=== PATIENT | female | born 1945 | race Caucasian/White ===

== ENCOUNTER 2024-09-13 15:39 | Inpatient (IN) | payer OTHER ==
[~2024-09-13] VITALS: Ht 152.4 cm; Wt 70.0 kg
[2024-09-13 16:25] LABS: BASOPHILS % (AUTO) 0.4 % (0.0-2.0); EOSINOPHILS # (AUTO) 0.2 K/uL (0.0-0.7); EOSINOPHILS % (AUTO) 3.1 % (0.0-6.0); HEMATOCRIT 38 % (33-45); HEMOGLOBIN 12.5 g/dL (11.5-14.8); LYMPHOCYTES # (AUTO) 1.2 K/uL (0.8-4.8); MEAN CORPUSCULAR HEMOGLOBIN 28 PG (26.0-33.0); MEAN CORPUSCULAR HGB CONC 33 g/dl (31.0-36.0); MEAN CORPUSCULAR VOLUME 84 fL (82-100); MONOCYTES # (AUTO) 0.6 K/uL (0.1-1.30); MONOCYTES % (AUTO) 9.7 % (2.0-12.0); NEUTROPHILS # (AUTO) 3.9 K/uL (1.8-8.9); NEUTROPHILS % (AUTO) 66.8 % (43.0-81.0); PLATELET COUNT (AUTO) 186 K/uL (150-450); RED CELL DISTRIBUTION WIDTH 15.3 % (11.5-15.0); WHITE BLOOD COUNT (AUTO) 5.9 K/uL (4.3-11.0)
[2024-09-13 16:44] LABS: ALANINE AMINOTRANSFERASE 11 U/L (12-78); ALBUMIN 3.6 g/dL (3.4-5.0); ALKALINE PHOSPHATASE 136 U/L (46-116); ASPARTATE AMINOTRANSFERASE 22 U/L (15-37); BILIRUBIN,DIRECT 0.2 mg/dL (0.0-0.2); BILIRUBIN,TOTAL 0.5 mg/dL (0.2-1.0); CALCIUM, SERUM 9.6 mg/dL (8.5-10.1); CARBON DIOXIDE 27 mmol/L (21-32); CHLORIDE 105 mmol/L (98-107); CREATININE 1.1 mg/dL (0.6-1.3); GLUCOSE 135 mg/dL (74-106); SODIUM SERUM 138 mmol/L (136-145); TOTAL PROTEIN, SERUM 7.6 g/dL (6.4-8.2); UREA NITROGEN, BLOOD 14 mg/dL (7-18)
[2024-09-13 17:14] LABS: APPEARANCE,URINE CLEAR (CLEAR); BILIRUBIN,URINE NEGATIVE (NEGATIVE); BLOOD, URINE NEGATIVE Ery/uL (NEGATIVE); COLOR,URINE YELLOW (YELLOW); KETONES,URINE NEGATIVE (NEGATIVE); LEUKOCYTE ESTERASE ,URINE NEGATIVE (NEGATIVE); NITRITE, URINE NEGATIVE (NEGATIVE); PH,URINE 6.5 (5.0-8.0); PROTEIN,URINE NEGATIVE (NEGATIVE); UGLUCOSE NEGATIVE (NEGATIVE); UROBILINOGEN,URINE 0.2 EU/dL (0.2)
[2024-09-13] MEDS ORDERED: MORPHINE SULFATE INJ 4 MG/ML DISP.SYRIN ONE (17:19)
[2024-09-13] MEDS: MORPHINE SULFATE INJ 2 MG/ML DISP.SYRIN IV ONE (18:07)
[2024-09-13] MEDS ORDERED: IBUPROFEN 600 MG TABLET ONE (18:08)
[2024-09-13] MEDS: IBUPROFEN 600 MG TABLET PO ONE (18:11)
[2024-09-13] MEDS ORDERED: DEUT12TA PO (19:26)
[2024-09-13] MEDS ORDERED: CALC-261 PO (19:26)
[2024-09-13] MEDS ORDERED: MELO-107 PO (19:26)
[2024-09-13] MEDS ORDERED: FERR325T23 PO (19:26)
[2024-09-13] MEDS ORDERED: LOSA50TA39 PO (19:26)
[2024-09-13] MEDS ORDERED: ONDANSETRON HCL/PF 4 MG/2 ML VIAL IVP PRN (21:00)
[2024-09-13] MEDS ORDERED: Z GUARD REMEDY 4 OZ OINT TP PRN (21:00)
[2024-09-13] MEDS ORDERED: MAGNESIUM HYDROXIDE 30 ML UDC PO PRN (21:00)
[2024-09-13] MEDS ORDERED: ZOLPIDEM TARTRATE 5 MG TABLET PO PRN (21:00)
[2024-09-13] MEDS ORDERED: MAG HYDROX/AL HYDROX/SIMETH 30 ML UDC PO PRN (21:00)
[2024-09-13 22:00] VITALS: BP 136/66; TEMP 98.1; O2SAT 98
[2024-09-14] VITALS: BP_SYST 124; BP_SYST 129; BP_DIAS 52; BP_DIAS 55; TEMP 98.1; O2SAT 98
[2024-09-14] MEDS ORDERED: DEXTROSE 50%-WATER 50 ML DISP.SYRIN IV PRN
[2024-09-14 02:36] LABS: BASOPHILS # (AUTO) 0.1 K/uL (0.0-0.2); BASOPHILS % (AUTO) 1.1 % (0.0-2.0); EOSINOPHILS # (AUTO) 0.3 K/uL (0.0-0.7); EOSINOPHILS % (AUTO) 4.5 % (0.0-6.0); HEMATOCRIT 35 % (33-45); HEMOGLOBIN 11.5 g/dL (11.5-14.8); LYMPHOCYTES # (AUTO) 1.3 K/uL (0.8-4.8); LYMPHOCYTES % (AUTO) 23.5 % (20.0-44.0); MEAN CORPUSCULAR HEMOGLOBIN 28 PG (26.0-33.0); MEAN CORPUSCULAR HGB CONC 33 g/dl (31.0-36.0); MEAN CORPUSCULAR VOLUME 84 fL (82-100); MONOCYTES # (AUTO) 0.5 K/uL (0.1-1.30); MONOCYTES % (AUTO) 8.5 % (2.0-12.0); NEUTROPHILS # (AUTO) 3.5 K/uL (1.8-8.9); NEUTROPHILS % (AUTO) 62.4 % (43.0-81.0); PLATELET COUNT (AUTO) 170 K/uL (150-450); RED BLOOD CELL COUNT(AUTO) 4.17 MIL/uL (4.0-5.2); RED CELL DISTRIBUTION WIDTH 15.3 % (11.5-15.0); WHITE BLOOD COUNT (AUTO) 5.6 K/uL (4.3-11.0)
[2024-09-14 03:11] LABS: THYROID STIMULATING HORMONE 1.01 uIU/mL (0.358-3.74)
[2024-09-14 03:42] LABS: CALCIUM, SERUM 9.2 mg/dL (8.5-10.1); CREATININE 0.9 mg/dL (0.6-1.3); PHOSPHORUS 4.4 mg/dL (2.5-4.9); POTASSIUM 3.7 mmol/L (3.5-5.1)
[2024-09-14 04:00] VITALS: BP 154/70; TEMP 98.2; O2SAT 97
[2024-09-14] MEDS: BLOOD SUGAR DIAGNOSTIC 1 EACH STRIP VI SCH (06:27)
[2024-09-14] MEDS: INSULIN REGULAR, HUMAN 100 UNIT/ML 3 ML VIAL SQ PRN (06:32)
[2024-09-14] MEDS: HYDROCODONE/APAP 5/325MG TABLET PO PRN (07:03)
[2024-09-14 08:00] VITALS: BP 169/100; TEMP 98.6; O2SAT 98
[2024-09-14] MEDS: LOSARTAN POTASSIUM 50 MG TABLET PO SCH (08:38)
[2024-09-14] MEDS: CALCIUM CARB 250MG /VITAMIN D 1 UDTAB PO SCH (08:38)
[2024-09-14] MEDS: PANTOPRAZOLE 40 MG TABLET.DR PO SCH (08:38)
[2024-09-14] MEDS: FERROUS SULFATE (325 MG) 325 MG/TAB TABLET PO SCH (08:38)
[2024-09-14] MEDS: DEUTETRABENAZINE 12 MG PO SCH (09:04)
[2024-09-14 11:24] LABS: THYROID STIMULATING HORMONE 1.05 uIU/mL (0.358-3.74)
[2024-09-14 12:00] VITALS: BP 157/89; TEMP 98.6; O2SAT 98
[2024-09-14 16:00] VITALS: BP 149/88; TEMP 98.6; O2SAT 97
[2024-09-14] MEDS: AUSTEDO 12 MG PO SCH (16:27)
[2024-09-14 20:00] VITALS: BP 167/67; TEMP 98.1; O2SAT 96
[2024-09-14] MEDS: ACETAMINOPHEN 325 MG TABLET PO PRN (21:16)
[2024-09-14] MEDS: *INSULIN REGULAR(HUMULIN R)HUM 100 UNIT/ML VIAL SQ PRN (22:24)
[2024-09-15] VITALS: BP 140/69; TEMP 98.1; O2SAT 94
[2024-09-15 04:00] VITALS: BP 159/72; TEMP 97.9; O2SAT 96
[2024-09-15 04:10] VITALS: BP 148/68; TEMP 97.9; O2SAT 90
[2024-09-15 08:00] VITALS: BP 163/68; TEMP 98.2; O2SAT 95
[2024-09-15] MEDS: VALSARTAN 80 MG TABLET PO SCH (09:21)
[2024-09-15] MEDS ORDERED: IOHEXOL-350 100 ML VIAL IV ONE (12:36)
[2024-09-15] MEDS ORDERED: CT SWABBABLE VALVE TRANS SET 1 EA INFUS.SET MC ONE (12:36)
[2024-09-15] MEDS ORDERED: IV NS 0.9% 250 ML IV ONE (12:37)
[2024-09-15] MEDS: SOD FERRIC GLUC 125 MG in IV NS 0.9% 100 ML IV SCH (14:28)
[2024-09-15 16:00] VITALS: BP 134/68; TEMP 97.3; O2SAT 94
[2024-09-15] MEDS: SENNOSIDES 8.6 MG TABLET PO SCH (17:34)
[2024-09-15 20:00] VITALS: BP 134/52; TEMP 98.2; O2SAT 95
[2024-09-15] MEDS ORDERED: SENNOSIDES 8.6 MG TABLET PO SCH (22:00)
[2024-09-16 08:00] VITALS: BP 168/60; TEMP 99.9; O2SAT 94
[2024-09-16 10:10] VITALS: BP 148/69
[2024-09-16 16:00] VITALS: BP 154/67; TEMP 98.6; O2SAT 96
[2024-09-16 16:41] VITALS: TEMP 98.6
[2024-09-16 17:07] VITALS: BP 164/74
[2024-09-16] MEDS: CLONIDINE HCL 0.1 MG TABLET SL ONE (17:07)
== END 2024-09-16 20:40 | DRG 562 ==
LOC: ER 15:45 → TELE 21:22 → MED 09-15 08:40
PROVIDERS: ADMIT Student in an Organized Health Care Education/Training Program
DX: S82.144A Nondisplaced bicondylar fracture of right tibia, initial encounter for closed fracture (principal); I21.A1 Myocardial infarction type 2; G10 Huntington's disease; M25.461 Effusion, right knee; E78.5 Hyperlipidemia, unspecified; E04.2 Nontoxic multinodular goiter; Z86.73 Personal history of transient ischemic attack (TIA), and cerebral infarction without residual deficits; W19.XXXA Unspecified fall, initial encounter; R26.89 Other abnormalities of gait and mobility; I10 Essential (primary) hypertension; F03.90 Unspecified dementia, unspecified severity, without behavioral disturbance, psychotic disturbance, mood disturbance, and anxiety; Y93.9 Activity, unspecified; Y92.009 Unspecified place in unspecified non-institutional (private) residence as the place of occurrence of the external cause; R16.0 Hepatomegaly, not elsewhere classified; F39 Unspecified mood [affective] disorder; F43.20 Adjustment disorder, unspecified; D50.9 Iron deficiency anemia, unspecified; E11.9 Type 2 diabetes mellitus without complications
CPT/HCPCS: 36415; 70450-TC; 70486-TC; 70496-TC; 70498-TC; 71250-TC; 72125-TC; 73564-TC; 73590-TC; 73610-TC; 73700-TC; 76536-TC; 80048-TC; 80061-TC; 80076-TC; 82728-TC; 82962-TC; 83540-TC; 83735-TC; 84100-TC; 84439-TC; 84443-TC; 84484-TC; 85025-TC; 93307-TC; 97110-TC; 97112-TC; 97530-TC; A4223; G0378; J1815; J2270; J2916; J7030; J7050; Q9967

== ENCOUNTER 2024-09-24 23:54 | Emergency (ER) | payer OTHER ==
[~2024-09-24] VITALS: Ht 165.1 cm; Wt 77.1 kg
[~2024-09-24 23:54] MED LIST: CALC-261 PO; DEUT12TA PO; FERR325T23 PO; LOSA50TA39 PO; MELO-107 PO
[2024-09-25] MEDS ORDERED: MORPHINE SULFATE INJ 2 MG/ML DISP.SYRIN ONE (00:21)
[2024-09-25] MEDS ORDERED: ASPIRIN 325 MG TABLET ONE (00:22)
[2024-09-25 00:23] LABS: BASOPHILS % (AUTO) 0.6 % (0.0-2.0); EOSINOPHILS # (AUTO) 0.3 K/uL (0.0-0.7); EOSINOPHILS % (AUTO) 4.9 % (0.0-6.0); HEMATOCRIT 36 % (33-45); HEMOGLOBIN 12.1 g/dL (11.5-14.8); LYMPHOCYTES % (AUTO) 28.9 % (20.0-44.0); MEAN CORPUSCULAR HEMOGLOBIN 28 PG (26.0-33.0); MEAN CORPUSCULAR HGB CONC 34 g/dl (31.0-36.0); MEAN CORPUSCULAR VOLUME 84 fL (82-100); MONOCYTES # (AUTO) 0.6 K/uL (0.1-1.30); MONOCYTES % (AUTO) 8.6 % (2.0-12.0); NEUTROPHILS # (AUTO) 3.9 K/uL (1.8-8.9); PLATELET COUNT (AUTO) 268 K/uL (150-450); RED BLOOD CELL COUNT(AUTO) 4.24 MIL/uL (4.0-5.2); RED CELL DISTRIBUTION WIDTH 15.1 % (11.5-15.0); WHITE BLOOD COUNT (AUTO) 6.9 K/uL (4.3-11.0)
[2024-09-25] MEDS: MORPHINE SULFATE INJ 2 MG/ML DISP.SYRIN IV ONE (00:25)
[2024-09-25] MEDS: ASPIRIN 325 MG TABLET PO ONE (00:25)
[2024-09-25 00:44] LABS: CARBON DIOXIDE 32 mmol/L (21-32); CHLORIDE 103 mmol/L (98-107); CREATININE 1.1 mg/dL (0.6-1.3); GLUCOSE 118 mg/dL (74-106); POTASSIUM 4.1 mmol/L (3.5-5.1); SODIUM SERUM 142 mmol/L (136-145); UREA NITROGEN, BLOOD 24 mg/dL (7-18)
[2024-09-25] MEDS ORDERED: CT SWABBABLE VALVE TRANS SET 1 EA INFUS.SET MC ONE (00:59)
[2024-09-25] MEDS ORDERED: IOHEXOL-350 100 ML VIAL IV ONE ×2 (00:59→01:02)
[2024-09-25] MEDS ORDERED: IV NS 0.9% 250 ML IV ONE (00:59)
[2024-09-25 01:00] LABS: ALANINE AMINOTRANSFERASE 16 U/L (12-78); ALBUMIN 3.2 g/dL (3.4-5.0); ALKALINE PHOSPHATASE 126 U/L (46-116); ASPARTATE AMINOTRANSFERASE 20 U/L (15-37); BILIRUBIN,DIRECT 0.1 mg/dL (0.0-0.2); BILIRUBIN,TOTAL 0.3 mg/dL (0.2-1.0); NT-PRO BNP 81 pg/mL (0-125)
[2024-09-25 01:29] LABS: PARTIAL THROMBOPLASTIN TIME 30.7 SEC (24.3-34.3); PROTHROMBIN TIME 10.6 SECS (9.2-11.1)
[2024-09-25 05:18] VITALS: BP 138/66; TEMP 98; O2SAT 97
== END 2024-09-25 05:18 | disposition home or self-care (01) ==
LOC: ER 09-25 00:01
DX: R07.89 Other chest pain (principal); R06.02 Shortness of breath; I10 Essential (primary) hypertension; E11.9 Type 2 diabetes mellitus without complications; Z79.1 Long term (current) use of non-steroidal anti-inflammatories (NSAID); Z79.899 Other long term (current) drug therapy; Z86.73 Personal history of transient ischemic attack (TIA), and cerebral infarction without residual deficits; Z88.0 Allergy status to penicillin; Z90.710 Acquired absence of both cervix and uterus
CPT/HCPCS: 99285; 96374; 71275; 71045; 93005; 85025; 80048; 80076; 36415; 84484 ×2; 85730; 83880; J7050; J2270; Q9967 ×2